=== PATIENT | female | born 1955 | race Caucasian/White ===

== ENCOUNTER → 2018-07-22 | Outpatient (CLI) | payer OTHER ==
[~2018-07-22] MED LIST: ASPIR-LOW81 MG PO; ATENOLOL50 MG PO; CENTRUM1 TAB PO; LISINOPRIL20 MG PO; TRIAMTERENE AND1 TAB PO; TYLENOL 500MG500 MG PO
== END ==
LOC: COL.RAD 08:59
DX: R10.32 Left lower quadrant pain (principal); Z90.49 Acquired absence of other specified parts of digestive tract
CPT/HCPCS: Q9967

== ENCOUNTER → 2020-11-27 | Outpatient (CLI) | payer MEDICARE | LOC: COL.RAD 11-22 09:45 | DX: M25.512 Pain in left shoulder (principal) | CPT/HCPCS: J3301; Q9967 ==

== ENCOUNTER → 2024-04-22 | Outpatient (CLI) | payer MEDICARE ==
[~2024-04-22] VITALS: Ht 175.3 cm; Wt 91.1 kg
[~2024-04-22] MED LIST changes: +ADVIL200 MG PO; +GLUCOPHAGE500 MG/TAB PO; +MULTIPLE VITAMI1 CAP PO; +PRINZIDE 12.5 M1 TAB PO; +PROBIOTIC BLEN1 EACH PO; +THE MEDICINE S200 M2 PO; +Triamcinolone 40 MG/ML 1 ML VIAL IJ SCH; +VESICARE 5MG5 MG PO; +VITAMIN D3400 I1 PO; +VTAMINC250TA
[2024-04-22 09:19] VITALS: BP 153/85; PULSE 73; TEMP 98.1
[2024-04-22 10:55] VITALS: BP 162/87; PULSE 61
== END ==
LOC: COL.RAD 08:45
DX: M51.36 Other intervertebral disc degeneration, lumbar region (principal)
CPT/HCPCS: J0665; J3301